=== PATIENT | male | born 1950 | race Caucasian/White ===

== ENCOUNTER 2017-12-21 10:01 | Inpatient (IN) | payer MEDICARE, OTHER ==
[2017-12-21] MEDS ORDERED: hydrALAZINE HCL 20 MG/ML 1 ML VIAL IVP STA ×3 (10:31→13:32)
[2017-12-21] MEDS ORDERED: amLODIPine 5 MG TAB PO STA (10:31)
--- NOTE | 2017-12-21 10:38 | ED ---
General Adult HPI - General Chief complaint: Recheck/Abnormal Lab/Rx Stated complaint: hypertension Time Seen by Provider: 12/21/17 10:18 Source: patient, RN notes reviewed Mode of arrival: wheelchair Limitations: no limitations - History of Present Illness Initial comments: 67-year-old male presents with chief complaint of elevated blood pressure. Patient has been adjusting his blood pressure medications over the past several days. He states that over the past 3-4 days his blood pressure has been trending up. He is currently taking lisinopril 20 mg twice daily, metoprolol placed which is a new medication, and sotalol. He was started on hydralazine but only takes medication for 1 day. He has history of hypertension, he is status post pacemaker, and COPD. Patient complains of some dizziness, nausea, and mild headache. Denies any focal numbness or weakness. Denies chest pain. Denies abdominal pain. - Related Data Home Medications Medication Instructions Recorded Confirmed Allopurinol [Zyloprim] 300 mg PO DAILY 12/21/17 12/21/17 Apixaban [Eliquis] 5 mg PO BID 12/21/17 12/21/17 Doxazosin Mesylate 8 mg PO BID 12/21/17 12/21/17 Lisinopril [Zestril] 20 mg PO BID 12/21/17 12/21/17 Metoprolol Tartrate [Lopressor] 50 mg PO BID 12/21/17 12/21/17 Omeprazole 40 mg PO DAILY 12/21/17 12/21/17 Simvastatin [Zocor] 20 mg PO HS 12/21/17 12/21/17 Sotalol [Betapace] 80 mg PO BID 12/21/17 12/21/17 Allergies Allergy/AdvReac Type Severity Reaction Status Date / Time amoxicillin Allergy Unknown Verified 12/21/17 10:56 ampicillin Allergy Unknown Verified 12/21/17 10:56 codeine Allergy Unknown Verified 12/21/17 10:56 Iodinated Contrast- Oral and Allergy Unknown Verified 12/21/17 10:56 IV Dye iodine Allergy Unknown Verified 12/21/17 10:56 levofloxacin [From Levaquin] Allergy Unknown Verified 12/21/17 10:56 Penicillins Allergy Unknown Verified 12/21/17 10:56 Review of Systems ROS Statement: Those systems with pertinent positive or pertinent negative responses have been documented in the HPI. ROS Other: All systems not noted in ROS Statement are negative. Past Medical History Past Medical History: CVA/TIA, Deep Vein Thrombosis (DVT), Hypertension, Myocardial Infarction ([place]), Pulmonary Embolus ([place]) History of Any Multi-Drug Resistant Organisms: None Reported Past Surgical History: Cardiac Ablation, Pacemaker Past Psychological History: Depression Smoking Status: Never smoker Past Alcohol Use History: None Reported Past Drug Use History: Marijuana General Exam Limitations: no limitations General appearance: alert, in no apparent distress Head exam: Present: atraumatic, normocephalic Eye exam: Present: normal appearance. Absent: PERRL, EOMI ENT exam: Present: normal oropharynx Neck exam: Present: normal inspection. Absent: tenderness, meningismus Respiratory exam: Present: normal lung sounds bilaterally, decreased breath sounds. Absent: respiratory distress, rhonchi Cardiovascular Exam: Present: regular rate, normal rhythm GI/Abdominal exam: Present: soft. Absent: distended, tenderness Extremities exam: Present: normal inspection, full ROM. Absent: tenderness, normal capillary refill, pedal edema Neurological exam: Present: alert, oriented X3, CN II-XII intact. Absent: motor sensory deficit Psychiatric exam: Present: normal affect, normal mood Skin exam: Present: warm, dry, intact. Absent: cyanosis, diaphoretic Course Vital Signs 12/21/17 12/21/17 12/21/17 10:07 11:15 11:25 Temperature 97.5 F L Pulse Rate 74 69 70 Respiratory 18 19 18 Rate Blood Pressure 221/129 227/145 190/122 O2 Sat by Pulse 97 98 98 Oximetry EKG Findings - EKG Comments: EKG Findings:: EKG shows atrial paced rhythm, low voltage QRS, ventricular rate 71, CA interval 150, QRS duration 82, QTC 525, which is prolonged Medical Decision Making - Medical Decision Making 67-year-old male presenting with elevated blood pressure, complain of mild headache and dizziness. Patient has no chest pain. EKG shows no definitive signs of ischemia. Chest x-ray obtained, normal mediastinum, no focal infiltrate or acute process. Head CT is obtained, there is chronic changes with no acute intracranial hemorrhage or ischemia. Laboratory studies reveal normal white blood cell count 4.8, stable hemoglobin 15.4. Troponin is elevated 0.279 and BNP is 1260. Initial blood pressure 240/140. Patient is given hydralazine and Norvasc, blood pressure is down trending. Patient will be admitted for serial cardiac enzymes and further blood pressure management. Diagnosis: Hypertensive urgency - Lab Data Result diagrams: 12/21/17 10:35 12/21/17 10:35 Lab Results 12/21/17 12/21/17 12/21/17 Range/Units 10:35 10:35 10:35 WBC 4.8 (3.8-10.6) k/uL RBC 4.97 (4.30-5.90) m/uL Hgb 15.4 (13.0-17.5) gm/dL Hct 47.4 (39.0-53.0) % MCV 95.4 (80.0-100.0) fL MCH 30.9 (25.0-35.0) pg MCHC 32.4 (31.0-37.0) g/dL RDW 13.4 (11.5-15.5) % Plt Count 209 (150-450) k/uL Neutrophils % 60 % Lymphocytes % 26 % Monocytes % 6 % Eosinophils % 6 % Basophils % 1 % Neutrophils # 2.9 (1.3-7.7) k/uL Lymphocytes # 1.2 (1.0-4.8) k/uL Monocytes # 0.3 (0-1.0) k/uL Eosinophils # 0.3 (0-0.7) k/uL Basophils # 0.1 (0-0.2) k/uL PT (9.0-12.0) sec INR (<1.2) APTT (22.0-30.0) sec Sodium 143 (137-145) mmol/L Potassium 4.1 (3.5-5.1) mmol/L Chloride 103 (98-107) mmol/L Carbon Dioxide 34 H (22-30) mmol/L Anion Gap 6 mmol/L BUN 21 H (9-20) mg/dL Creatinine 0.82 (0.66-1.25) mg/dL Est GFR (MDRD) Af Amer >60 (>60 ml/min/1.73 sqM) Est GFR (MDRD) Non-Af >60 (>60 ml/min/1.73 sqM) Glucose 105 H (74-99) mg/dL Calcium 9.1 (8.4-10.2) mg/dL Magnesium 1.7 (1.6-2.3) mg/dL Total Bilirubin 0.7 (0.2-1.3) mg/dL AST 61 H (17-59) U/L ALT 33 (21-72) U/L Alkaline Phosphatase 82 (38-126) U/L Total Creatine Kinase 77 (55-170) U/L CK-MB (CK-2) 3.1 H* (0.0-2.4) ng/mL CK-MB (CK-2) Rel Index 4.0 Troponin I 0.279 H* (0.000-0.034) ng/mL NT-Pro-B Natriuret Pep pg/mL Total Protein 6.7 (6.3-8.2) g/dL Albumin 3.6 (3.5-5.0) g/dL 12/21/17 12/21/17 Range/Units 10:35 10:35 WBC (3.8-10.6) k/uL RBC (4.30-5.90) m/uL Hgb (13.0-17.5) gm/dL Hct (39.0-53.0) % MCV (80.0-100.0) fL MCH (25.0-35.0) pg MCHC (31.0-37.0) g/dL RDW (11.5-15.5) % Plt Count (150-450) k/uL Neutrophils % % Lymphocytes % % Monocytes % % Eosinophils % % Basophils % % Neutrophils # (1.3-7.7) k/uL Lymphocytes # (1.0-4.8) k/uL Monocytes # (0-1.0) k/uL Eosinophils # (0-0.7) k/uL Basophils # (0-0.2) k/uL PT 11.5 (9.0-12.0) sec INR 1.2 H (<1.2) APTT 26.6 (22.0-30.0) sec Sodium (137-145) mmol/L Potassium (3.5-5.1) mmol/L Chloride (98-107) mmol/L Carbon Dioxide (22-30) mmol/L Anion Gap mmol/L BUN (9-20) mg/dL Creatinine (0.66-1.25) mg/dL Est GFR (MDRD) Af Amer (>60 ml/min/1.73 sqM) Est GFR (MDRD) Non-Af (>60 ml/min/1.73 sqM) Glucose (74-99) mg/dL Calcium (8.4-10.2) mg/dL Magnesium (1.6-2.3) mg/dL Total Bilirubin (0.2-1.3) mg/dL AST (17-59) U/L ALT (21-72) U/L Alkaline Phosphatase (38-126) U/L Total Creatine Kinase (55-170) U/L CK-MB (CK-2) (0.0-2.4) ng/mL CK-MB (CK-2) Rel Index Troponin I (0.000-0.034) ng/mL NT-Pro-B Natriuret Pep 1260 pg/mL Total Protein (6.3-8.2) g/dL Albumin (3.5-5.0) g/dL Critical Care Time Critical Care Time: Yes Total Critical Care Time: 35 Disposition Clinical Impression: Hypertensive urgency, Elevated troponin Dis[facility] Condition: Serious Referrals: Yosi Joseph MD [Primary Care Provider] - 1-2 days Decision to Admit Reason: Admit from EC Decision Date: 12/21/17 Decision Time: 11:46
[2017-12-21 10:49] LABS: Basophils # (A) 0.1 k/uL (0-0.2); Basophils % (A) 1 %; Eosinophils # (A) 0.3 k/uL (0-0.7); Eosinophils % (A) 6 %; HCT 47.4 % (39.0-53.0); HGB 15.4 gm/dL (13.0-17.5); Lymphocytes # (A) 1.2 k/uL (1.0-4.8); Lymphocytes % (A) 26 %; MCH 30.9 pg (25.0-35.0); MCHC 32.4 g/dL (31.0-37.0); MCV 95.4 fL (80.0-100.0); Mean Platelet Volume 7.3; Monocytes # (A) 0.3 k/uL (0-1.0); Monocytes % (A) 6 %; Neutrophils # (A) 2.9 k/uL (1.3-7.7); Neutrophils % (A) 60 %; Platelet Count 209 k/uL (150-450); RBC 4.97 m/uL (4.30-5.90); RDW 13.4 % (11.5-15.5); WBC 4.8 k/uL (3.8-10.6)
[2017-12-21 11:05] LABS: ALT 33 U/L (21-72); AST 61 U/L (17-59); Albumin 3.6 g/dL (3.5-5.0); Alkaline Phosphatase 82 U/L (38-126); Anion Gap 6 mmol/L; Blood Urea Nitrogen 21 mg/dL (9-20); Calcium 9.1 mg/dL (8.4-10.2); Carbon Dioxide 34 mmol/L (22-30); Chloride 103 mmol/L (98-107); Glucose 105 mg/dL (74-99); INR 1.2 (<1.2); Magnesium 1.7 mg/dL (1.6-2.3); Partial Thromboplastin Time 26.6 sec (22.0-30.0); Potassium 4.1 mmol/L (3.5-5.1); Prothrombin Time 11.5 sec (9.0-12.0); Sodium 143 mmol/L (137-145); Total Bilirubin 0.7 mg/dL (0.2-1.3); Total Protein 6.7 g/dL (6.3-8.2)
--- NOTE | 2017-12-21 11:13 | CT ---
EXAMINATION TYPE: CT brain wo con DATE OF EXAM: 12/21/2017 COMPARISON: NONE INDICATION: Elevated blood pressure, weakness and headache DLP: 1098.8 mGycm, Automated exposure control for dose reduction was used. CONTRAST: None CT of the brain is performed utilizing 3 mm thick sections through the posterior fossa and 3 mm thick sections through the remaining calvarium. Study is performed within 24 hours of arrival to the hosp ital. No abnormal hyperdensity is present to suggest an acute intracranial hemorrhage. No mass lesion is evident. No acute infarcts are evident. There is some mild white matter hypodensity in the posterior periventr icular regions most likely on the basis of chronic white matter ischemic change. Ventricles and sulci are appropriate for the patient age. Ventricles thickening through ethmoid air cells within the left frontal sinus. Air-fluid level may be within the left frontal sinus. Remaining paranasal sinuses are clear. Mastoid air cells are clear. IMPRESSIONS: 1. Mild periventricular white matter ischemic type changes. 2. Clinical correlation recommended for acute left frontal sinusitis
--- NOTE | 2017-12-21 11:27 | XR ---
EXAMINATION TYPE: XR chest 2V DATE OF EXAM: 12/21/2017 COMPARISON: NONE INDICATION: Chest pain TECHNIQUE: Frontal and lateral views of the chest are obtained. FINDINGS: The heart size is normal. The pulmonary vasculature is normal. The lungs are clear. Pacemaker overlies left chest. Lead placement appears normal. IMPRESSION: 1. No acute pulmonary process.
[2017-12-21 11:30] LABS: Creatine Kinase MB 3.1 ng/mL (0.0-2.4); Troponin I 0.279 ng/mL (0.000-0.034)
[2017-12-21] MEDS ORDERED: ASPIRIN 325 MG TAB PO STA (11:35)
[2017-12-21] MEDS ORDERED: ACETAMINOPHEN TAB 325 MG TAB PO PRN (11:46)
[2017-12-21] MEDS ORDERED: NALOXONE 0.4 MG/ML 1 ML VIAL IV PRN (11:46)
--- NOTE | 2017-12-21 13:58 | HP ---
HISTORY AND PHYSICAL CHIEF COMPLAINT: High blood pressure. HISTORY OF PRESENT ILLNESS: This is another admission for this 67-year-old white male. He is in the office last week and his blood pressure was exceedingly high and he was started on hydralazine in addition to the other medications he is on. Apparently, his blood pressure started to come down to around 160, but when he called his change management lead, Dr. Aquino recommended that he not take the hydralazine. He then began knows his blood pressure rising. He checks it at home. It was 174/119 and then 160/120, then went up to 180/126 and then up to over 200 in which was when he came to the emergency room. The only symptoms he had were headache, dizziness and nausea. He had no chest pain or shortness of breath. In the emergency room, his blood pressure was 221/129. His troponin was also elevated slightly, but he had absolutely no pain and his EKG was unremarkable. REVIEW OF SYSTEMS: He has an and no change in vision or hearing, cough, hemoptysis, abdominal pain, vomiting, diarrhea, melena, urinary complaints, renal failure, gout, diabetes, etc. At home he has been on a Zyloprim, amlodipine, apixaban, aspirin, Vicodin, lisinopril, Toprol, omeprazole, simvastatin, and also is on sotalol. He does not smoke. PHYSICAL EXAM: Blood pressure is 221/129, pulse 74 and regular, respirations of 18. He is afebrile. In general, he appeared to be well developed, well nourished, no acute distress. Skin color is normal. Skin is warm, dry. He is oriented and alert. Head, ears, eyes, nose, mouth, and throat were normal. Neck veins not distended. Carotids are normal. Chest is clear to auscultation, percussion. Cardiac exam demonstrated normal sinus rhythm. The abdomen is soft and nontender without any visceromegaly or masses. Bowel sounds are present. Extremities are normal. Neurologically, he is intact. IMPRESSION: 1. Malignant hypertension. 2. Elevated troponin. PLAN: 1. Bed rest. 2. IV fluids. 3. Uncontrolled hypertension. 4. Consult with Cardiology. MMODL / IJN: [id number] /
[2017-12-21] MEDS ORDERED: MORPHINE SULFATE 4 MG/ML SYRINGE IVP STA (16:08)
[2017-12-21] MEDS ORDERED: HYDROcodone/APAP 5-325MG 1 EACH TAB PO STA (16:09)
[2017-12-21] MEDS ORDERED: FAMOTIDINE 20 MG/2 ML VIAL IV STA (16:25)
[2017-12-21] MEDS ORDERED: METOPROLOL TARTRATE 5 MG/5 ML VIAL IVP STA (16:25)
[2017-12-21] MEDS ORDERED: DILTIAZEM 5 MG/ML 5 ML VIAL IVP STA (17:43)
[2017-12-21] MEDS: DILTIAZEM 125 MG in SODIUM CHLORIDE 0.9% 100 ML IV SCH (18:37)
[2017-12-21 18:50] LABS: Creatine Kinase MB 2.5 ng/mL (0.0-2.4)
[2017-12-21 19:43] LABS: Troponin I 0.21 ng/mL (0.000-0.034)
[2017-12-21] MEDS: hydrALAZINE HCL 50 MG TAB PO SCH ×2 (20:38→20:47)
[2017-12-21] MEDS: SODIUM CHLORIDE 0.9% 250 ML IV SCH ×4 (20:39→20:43)
[2017-12-21] MEDS: SOTALOL 80 MG TAB PO SCH (20:46)
[2017-12-21] MEDS: APIXABAN 5 MG TAB PO SCH (20:46)
[2017-12-21] MEDS: DOXAZOSIN 4 MG TAB PO SCH (20:47)
[2017-12-21] MEDS: ATORVASTATIN 10 MG TAB PO SCH (20:47)
[2017-12-21] MEDS: METOPROLOL TARTRATE 50 MG TAB PO SCH (20:47)
[2017-12-21] MEDS: LISINOPRIL 20 MG TAB PO SCH (20:47)
[2017-12-21 22:30] VITALS: BMI 28.0
[2017-12-22 01:14] LABS: Creatine Kinase MB 1.9 ng/mL (0.0-2.4)
[2017-12-22 01:19] LABS: Troponin I 0.205 ng/mL (0.000-0.034)
[2017-12-22] MEDS: HYDROcodone/APAP 5-325MG 1 EACH TAB PO PRN (05:21)
[2017-12-22] MEDS: DILTIAZEM 125 MG in SODIUM CHLORIDE 0.9% 100 ML IV SCH (05:49)
[2017-12-22] MEDS: PANTOPRAZOLE 40 MG TABLET PO SCH (06:07)
[2017-12-22] MEDS: SOTALOL 80 MG TAB PO SCH ×2 (06:07→17:08)
[2017-12-22] MEDS: METOPROLOL TARTRATE 50 MG TAB PO SCH (07:59)
[2017-12-22] MEDS: DOXAZOSIN 4 MG TAB PO SCH ×2 (07:59→21:29)
[2017-12-22] MEDS: ALLOPURINOL 300 MG TAB PO SCH (07:59)
[2017-12-22] MEDS: APIXABAN 5 MG TAB PO SCH ×2 (07:59→21:29)
[2017-12-22] MEDS: LISINOPRIL 20 MG TAB PO SCH ×2 (07:59→21:29)
[2017-12-22] MEDS: hydrALAZINE HCL 50 MG TAB PO SCH ×3 (07:59→21:29)
[2017-12-22] MEDS ORDERED: amLODIPine 5 MG TAB PO SCH (09:00)
--- NOTE | 2017-12-22 10:34 | P.CRDCN ---
History of Present Illness Reason for Consult (text): Patient admitted with severe headache and elevated blood pressure. Over the last 3-4 days he has noticed that his blood pressure been trending upwards He also has a history of recurrent palpitations and a history of atrial fibrillation No chest discomfort no loss of consciousness Past medical history of CVA DVT and pulmonary embolism Hypertension Coronary artery disease status post coronary stenting and myocardial infarction Dual-chamber pacemaker Atrial fibrillation In 2003 he underwent an ablation for arrhythmia at the [facility] by Dr. Rich Last year he underwent an ablation at [facility] by Dr. Gt Hollingsworth I will get the 2 reports regarding the ablation procedures for review At this time #1 hypertension controlled with Procardia XL 90 mg by mouth daily and nadolol 40 mg by mouth daily, discontinue metoprolol, reduce doxazosin to 4 mg twice a day, DC amlodipine #2 twelve-lead ECG shows an episode of 2-1 atrial tachycardia, continue anticoagulation, continue nadolol 40 mg by mouth daily for rate control Please see full dictation by Dr. longoria Past Medical History Past Medical History: Atrial Fibrillation, CVA/TIA, Deep Vein Thrombosis (DVT), Hypertension, Myocardial Infarction ([place]), Pulmonary Embolus ([place]) Last Myocardial Infarction Date:: 2013 History of Any Multi-Drug Resistant Organisms: None Reported Past Surgical History: Cardiac Ablation, Pacemaker Past Anesthesia/Blood Transfusion Reactions: No Reported Reaction Type of Cardiac Device: Permanent Pacemaker Device Placement Date:: 2015 Past Psychological History: Depression Smoking Status: Never smoker Past Alcohol Use History: None Reported Past Drug Use History: Marijuana Medications and Allergies Home Medications Medication Instructions Recorded Confirmed Type Allopurinol [Zyloprim] 300 mg PO DAILY 12/21/17 12/21/17 History Apixaban [Eliquis] 5 mg PO BID 12/21/17 12/21/17 History Doxazosin Mesylate 8 mg PO BID 12/21/17 12/21/17 History Lisinopril [Zestril] 20 mg PO BID 12/21/17 12/21/17 History Metoprolol Tartrate [Lopressor] 50 mg PO BID 12/21/17 12/21/17 History Omeprazole 40 mg PO DAILY 12/21/17 12/21/17 History Simvastatin [Zocor] 20 mg PO HS 12/21/17 12/21/17 History Sotalol [Betapace] 80 mg PO BID 12/21/17 12/21/17 History Allergies Allergy/AdvReac Type Severity Reaction Status Date / Time amoxicillin Allergy Unknown Verified 12/21/17 10:56 ampicillin Allergy Unknown Verified 12/21/17 10:56 codeine Allergy Unknown Verified 12/21/17 10:56 Iodinated Contrast- Oral and Allergy Unknown Verified 12/21/17 10:56 IV Dye iodine Allergy Unknown Verified 12/21/17 10:56 levofloxacin [From Levaquin] Allergy Unknown Verified 12/21/17 10:56 Penicillins Allergy Unknown Verified 12/21/17 10:56 Physical Exam Vitals: Vital Signs Temp Pulse Pulse Resp BP BP Pulse Ox 12/22/17 08:00 98.3 F 72 16 151/67 96 12/22/17 06:07 76 151/100 12/22/17 04:00 98.2 F 70 13 128/90 96 12/22/17 00:23 70 97/65 12/21/17 23:32 72 13 99/68 98 12/21/17 22:11 92 118/73 12/21/17 20:36 97.6 F 98 16 152/89 97 12/21/17 18:44 98.1 F 120 H 16 165/108 93 L 12/21/17 16:39 120 H 14 173/88 99 12/21/17 15:00 74 16 172/110 97 12/21/17 14:15 81 18 167/106 97 12/21/17 13:50 74 19 173/102 97 12/21/17 12:35 97.1 F L 74 168/115 99 12/21/17 11:25 70 18 190/122 98 12/21/17 11:15 69 19 227/145 98 Intake and Output 12/21/17 12/22/17 12/22/17 22:59 06:59 14:59 Intake Total 200 51.333 30 Output Total 100 300 Balance 100 -248.667 30 Intake: Intake, IV Titration 51.333 Amount Diltiazem 125 mg In 51.333 Sodium Chloride 0.9% 100 ml @ 10 MG/HR 10 mls/hr IV .[id number] [facility] Rx#: [id number] Oral 200 30 Output: Urine 100 300 Other: # Voids 1 Weight 88.1 kg Results 12/21/17 10:35 12/21/17 10:35 Cardiac Enzymes 12/21/17 12/21/17 12/21/17 Range/Units 10:35 10:35 17:37 AST 61 H (17-59) U/L CK-MB (CK-2) 3.1 H* 2.5 H* (0.0-2.4) ng/mL Troponin I 0.279 H* 0.210 H* (0.000-0.034) ng/mL 12/22/17 Range/Units 00:10 AST (17-59) U/L CK-MB (CK-2) 1.9 (0.0-2.4) ng/mL Troponin I 0.205 H* (0.000-0.034) ng/mL Coagulation 12/21/17 Range/Units 10:35 PT 11.5 (9.0-12.0) sec APTT 26.6 (22.0-30.0) sec CBC 12/21/17 Range/Units 10:35 WBC 4.8 (3.8-10.6) k/uL RBC 4.97 (4.30-5.90) m/uL Hgb 15.4 (13.0-17.5) gm/dL Hct 47.4 (39.0-53.0) % Plt Count 209 (150-450) k/uL Comprehensive Metabolic Panel 12/21/17 Range/Units 10:35 Sodium 143 (137-145) mmol/L Potassium 4.1 (3.5-5.1) mmol/L Chloride 103 (98-107) mmol/L Carbon Dioxide 34 H (22-30) mmol/L BUN 21 H (9-20) mg/dL Creatinine 0.82 (0.66-1.25) mg/dL Glucose 105 H (74-99) mg/dL Calcium 9.1 (8.4-10.2) mg/dL AST 61 H (17-59) U/L ALT 33 (21-72) U/L Alkaline Phosphatase 82 (38-126) U/L Total Protein 6.7 (6.3-8.2) g/dL Albumin 3.6 (3.5-5.0) g/dL Current Medications Generic Name Dose Route Start Last Admin Trade Name Freq PRN Reason Stop Dose Admin Acetaminophen 650 mg 12/21/17 11:46 Tylenol Tab PO Q6HR PRN Mild Pain or Fever > 100.5 Hydrocodone Bitart/Acetaminophen 1 each 12/21/17 11:46 12/22/17 05:21 [place] 5-325 PO 1 each Q4HR PRN Administration Moderate Pain Allopurinol 300 mg 12/22/17 09:00 12/22/17 07:59 Zyloprim PO 300 mg DAILY [facility] Administration Apixaban 5 mg 12/21/17 21:00 12/22/17 07:59 Eliquis PO 5 mg BID [facility] Administration Atorvastatin Calcium 10 mg 12/21/17 21:00 12/21/17 20:47 Lipitor PO 10 mg HS [facility] Administration Doxazosin Mesylate 4 mg 12/22/17 21:00 Cardura PO BID [facility] Hydralazine HCl 100 mg 12/21/17 16:00 12/22/17 07:59 Apresoline PO 100 mg TID [facility] Administration Lisinopril 20 mg 12/21/17 21:00 12/22/17 07:59 Zestril PO 20 mg BID [facility] Administration Nadolol 40 mg 12/22/17 10:45 Corgard PO BID [facility] Naloxone HCl 0.2 mg 12/21/17 11:46 Narcan IV Q2M PRN Opioid Reversal Nifedipine 90 mg 12/22/17 10:45 Procardia Xl PO DAILY [facility] Pantoprazole Sodium 40 mg 12/22/17 07:30 12/22/17 06:07 Protonix PO 40 mg [id number] [facility] Administration Sotalol HCl 80 mg 12/21/17 18:00 12/22/17 06:07 Betapace PO 80 mg Q12H [facility] Administration Intake and Output 12/21/17 12/22/17 12/22/17 22:59 06:59 14:59 Intake Total 200 51.333 30 Output Total 100 300 Balance 100 -248.667 30 Intake: Intake, IV Titration 51.333 Amount Diltiazem 125 mg In 51.333 Sodium Chloride 0.9% 100 ml @ 10 MG/HR 10 mls/hr IV .[id number] [facility] Rx#: [id number] Oral 200 30 Output: Urine 100 300 Other: # Voids 1 Weight 88.1 kg 12/21/17 10:35 12/21/17 10:35
--- NOTE | 2017-12-22 10:56 | P.CRDCN ---
History of Present Illness Consult date: 12/22/17 Requesting physician: Yosi Joseph Consult reason: hypertension Chief complaint: Hypertension History of present illness: This is a pleasant 67-year-old gentleman who now follows with Dr. VC Aquino in the office. He recently moved to this area from [place], he has extensive history including ablation 3 for atrial fibrillation and atrial flutter, prior cardioversions, multiple CVAs and TIAs, myocardial infarction following a ruptured diverticula, prior DVT and PE, hypertension, sick sinus syndrome status post pacemaker, hyperlipidemia, marijuana use. According to the patient, he has been having recent medication adjustments for his blood pressure. He has a monitor at home which sits at his bedside, he was instructed that if the monitor ever goes off he is to come to the emergency room. He states that his device started beeping and for this reason he came in for further evaluation. According to the patient he has been experiencing some lightheadedness at home and generally not feeling well. He also complains of a mild headache and nausea. EKG performed on arrival here showed an atrial tachycardia, subsequent EKG showed a normal sinus rhythm with no acute changes. Patient was also noted on the monitor technician to have a rapid atrial tachycardia, he was initiated on IV Cardizem drip. Blood pressure on arrival here 221/129, blood pressure this morning 150/67. Patient has most recently been to see Dr. VC Aquino in November, medication adjustments were made, patient was started on Eliquis 5 mg twice a day and his Coumadin was discontinued, he was started on lisinopril 20 mg twice a day, continued on a baby aspirin daily, started on metoprolol tartrate 50 mg daily, simvastatin 20 mg daily, and sotalol one twice a day. His verapamil was discontinued. Patient was initiated here on Norvasc 5 mg daily. We will discontinue the Norvasc and start the patient on Procardia, we will also decrease the dose of Doxil Zosyn the patient is on 24 mg twice a day, discontinue Lopressor and start the patient on nadolol for more optimal blood pressure control. Discontinue IV Cardizem drip. Past Medical History Past Medical History: Atrial Fibrillation, CVA/TIA, Deep Vein Thrombosis (DVT), Hypertension, Myocardial Infarction (AR), Pulmonary Embolus (PE) Last Myocardial Infarction Date:: 2013 History of Any Multi-Drug Resistant Organisms: None Reported Past Surgical History: Cardiac Ablation, Pacemaker Past Anesthesia/Blood Transfusion Reactions: No Reported Reaction Type of Cardiac Device: Permanent Pacemaker Device Placement Date:: 2015 Past Psychological History: Depression Smoking Status: Never smoker Past Alcohol Use History: None Reported Past Drug Use History: Marijuana Medications and Allergies Home Medications Medication Instructions Recorded Confirmed Type Allopurinol [Zyloprim] 300 mg PO DAILY 12/21/17 12/21/17 History Apixaban [Eliquis] 5 mg PO BID 12/21/17 12/21/17 History Doxazosin Mesylate 8 mg PO BID 12/21/17 12/21/17 History Lisinopril [Zestril] 20 mg PO BID 12/21/17 12/21/17 History Metoprolol Tartrate [Lopressor] 50 mg PO BID 12/21/17 12/21/17 History Omeprazole 40 mg PO DAILY 12/21/17 12/21/17 History Simvastatin [Zocor] 20 mg PO HS 12/21/17 12/21/17 History Sotalol [Betapace] 80 mg PO BID 12/21/17 12/21/17 History Allergies Allergy/AdvReac Type Severity Reaction Status Date / Time amoxicillin Allergy Unknown Verified 12/21/17 10:56 ampicillin Allergy Unknown Verified 12/21/17 10:56 codeine Allergy Unknown Verified 12/21/17 10:56 Iodinated Contrast- Oral and Allergy Unknown Verified 12/21/17 10:56 IV Dye iodine Allergy Unknown Verified 12/21/17 10:56 levofloxacin [From Levaquin] Allergy Unknown Verified 12/21/17 10:56 Penicillins Allergy Unknown Verified 12/21/17 10:56 Physical Exam Vitals: Vital Signs Temp Pulse Pulse Resp BP BP Pulse Ox 12/22/17 08:00 98.3 F 72 16 151/67 96 12/22/17 06:07 76 151/100 12/22/17 04:00 98.2 F 70 13 128/90 96 12/22/17 00:23 70 97/65 12/21/17 23:32 72 13 99/68 98 12/21/17 22:11 92 118/73 12/21/17 20:36 97.6 F 98 16 152/89 97 12/21/17 18:44 98.1 F 120 H 16 165/108 93 L 12/21/17 16:39 120 H 14 173/88 99 12/21/17 15:00 74 16 172/110 97 12/21/17 14:15 81 18 167/106 97 12/21/17 13:50 74 19 173/102 97 12/21/17 12:35 97.1 F L 74 168/115 99 12/21/17 11:25 70 18 190/122 98 12/21/17 11:15 69 19 227/145 98 Intake and Output 12/21/17 12/22/17 12/22/17 22:59 06:59 14:59 Intake Total 200 51.333 30 Output Total 100 300 Balance 100 -248.667 30 Intake: Intake, IV Titration 51.333 Amount Diltiazem 125 mg In 51.333 Sodium Chloride 0.9% 100 ml @ 10 MG/HR 10 mls/hr IV .[id number] [facility] Rx#: [id number] Oral 200 30 Output: Urine 100 300 Other: # Voids 1 Weight 88.1 kg PHYSICAL EXAMINATION: HEENT: Head is atraumatic, normocephalic. Pupils equal, round. Neck is supple. There is no elevated jugular venous pressure. HEART EXAMINATION: Heart S1, S2 normal. No murmur or gallop heard. CHEST EXAMINATION: Lungs are clear to auscultation and precussion. No chest wall tenderness is noted on palpation or with deep breathing. ABDOMEN: Soft, nontender. Bowel sounds are heard. No organomegaly noted. EXTREMITIES: 2+ peripheral pulses with no evidence of peripheral edema and no calf tenderness noted. NEUROLOGIC patient is awake, alert and oriented -3. . Results 12/21/17 10:35 12/21/17 10:35 Cardiac Enzymes 12/21/17 12/21/17 12/21/17 Range/Units 10:35 10:35 17:37 AST 61 H (17-59) U/L CK-MB (CK-2) 3.1 H* 2.5 H* (0.0-2.4) ng/mL Troponin I 0.279 H* 0.210 H* (0.000-0.034) ng/mL 12/22/17 Range/Units 00:10 AST (17-59) U/L CK-MB (CK-2) 1.9 (0.0-2.4) ng/mL Troponin I 0.205 H* (0.000-0.034) ng/mL Coagulation 12/21/17 Range/Units 10:35 PT 11.5 (9.0-12.0) sec APTT 26.6 (22.0-30.0) sec CBC 12/21/17 Range/Units 10:35 WBC 4.8 (3.8-10.6) k/uL RBC 4.97 (4.30-5.90) m/uL Hgb 15.4 (13.0-17.5) gm/dL Hct 47.4 (39.0-53.0) % Plt Count 209 (150-450) k/uL Comprehensive Metabolic Panel 12/21/17 Range/Units 10:35 Sodium 143 (137-145) mmol/L Potassium 4.1 (3.5-5.1) mmol/L Chloride 103 (98-107) mmol/L Carbon Dioxide 34 H (22-30) mmol/L BUN 21 H (9-20) mg/dL Creatinine 0.82 (0.66-1.25) mg/dL Glucose 105 H (74-99) mg/dL Calcium 9.1 (8.4-10.2) mg/dL AST 61 H (17-59) U/L ALT 33 (21-72) U/L Alkaline Phosphatase 82 (38-126) U/L Total Protein 6.7 (6.3-8.2) g/dL Albumin 3.6 (3.5-5.0) g/dL Current Medications Generic Name Dose Route Start Last Admin Trade Name Freq PRN Reason Stop Dose Admin Acetaminophen 650 mg 12/21/17 11:46 Tylenol Tab PO Q6HR PRN Mild Pain or Fever > 100.5 Hydrocodone Bitart/Acetaminophen 1 each 12/21/17 11:46 12/22/17 05:21 Dawson 5-325 PO 1 each Q4HR PRN Administration Moderate Pain Allopurinol 300 mg 12/22/17 09:00 12/22/17 07:59 Zyloprim PO 300 mg DAILY [facility] Administration Amlodipine Besylate 5 mg 12/22/17 09:00 12/22/17 07:59 Norvasc PO 5 mg DAILY [facility] Administration Apixaban 5 mg 12/21/17 21:00 12/22/17 07:59 Eliquis PO 5 mg BID [facility] Administration Atorvastatin Calcium 10 mg 12/21/17 21:00 12/21/17 20:47 Lipitor PO 10 mg HS [facility] Administration Doxazosin Mesylate 8 mg 12/21/17 21:00 12/22/17 07:59 Cardura PO 8 mg BID [facility] Administration Hydralazine HCl 100 mg 12/21/17 16:00 12/22/17 07:59 Apresoline PO 100 mg TID [facility] Administration Diltiazem HCl 125 mg/ Sodium 125 mls @ 10 mls/hr 12/21/17 18:00 12/22/17 05: 49 Chloride IV Not Given .[id number] [facility] 10 MG/HR Lisinopril 20 mg 12/21/17 21:00 12/22/17 07:59 Zestril PO 20 mg BID [facility] Administration Metoprolol Tartrate 50 mg 12/21/17 21:00 12/22/17 07:59 Lopressor PO 50 mg BID [facility] Administration Naloxone HCl 0.2 mg 12/21/17 11:46 Narcan IV Q2M PRN Opioid Reversal Pantoprazole Sodium 40 mg 12/22/17 07:30 12/22/17 06:07 Protonix PO 40 mg [id number] [facility] Administration Sotalol HCl 80 mg 12/21/17 18:00 12/22/17 06:07 Betapace PO 80 mg Q12H [facility] Administration Intake and Output 12/21/17 12/22/17 12/22/17 22:59 06:59 14:59 Intake Total 200 51.333 30 Output Total 100 300 Balance 100 -248.667 30 Intake: Intake, IV Titration 51.333 Amount Diltiazem 125 mg In 51.333 Sodium Chloride 0.9% 100 ml @ 10 MG/HR 10 mls/hr IV .[id number] [facility] Rx#: [id number] Oral 200 30 Output: Urine 100 300 Other: # Voids 1 Weight 88.1 kg 12/21/17 10:35 12/21/17 10:35 EKG Interpretations (text) Original EKG shows an atrial tachycardia with rapid ventricular response. Subsequent EKG shows a normal sinus rhythm Assessment and Plan Plan: Assessment and plan #1 accelerated hypertension #2 atrial tachycardia with rapid ventricular response #3 history of prior ablations for atrial fibrillation and atrial flutter #4 history of cardioversions #5 prior CVA and TIAs #6 history of myocardial infarction #7History of DVT and pulmonary embolism #8 hypertension #9 sinus syndrome with prior pacemaker #10 hyperlipidemia #11 arthritis Plan We will obtain records of patient's prior ablations and procedures. We will also obtain an echocardiogram with Doppler study. We will discontinue the Cardizem drip and the Norvasc and start the patient on Procardia, discontinue metoprolol and initiate nadolol for more optimal blood pressure control. Patient did have a pacemaker interrogation performed on December 03 in the office which revealed 345 mode switches with only 2 stored EGM's both showing FFR W sensing. Also showed 17 high ventricular rate episodes with 2 stored EGM' s showing nonsustained VT, longest 9 seconds. EKG shows atrial paced rhythm with poor R-wave progression and QTC of 471. We will continue to monitor the patient's blood pressure and heart rate further recommendations to follow. DNP note has been reviewed, I agree with a documented findings and plan of care. Patient was seen and examined.
[2017-12-22] MEDS: NADOLOL 20 MG TAB PO SCH ×2 (12:39→21:28)
[2017-12-22] MEDS: NIFEdipine XL 90 MG TAB.ER.24 PO SCH (12:39)
--- NOTE | 2017-12-22 14:14 | PN ---
PROGRESS NOTE DATE OF SERVICE: 12/22/2017 CHIEF COMPLAINT: Hypertension. HISTORY OF PRESENT ILLNESS: This gentleman still has a headache but he is feeling a little bit better. Blood pressure has dropped into an improved range, but still elevated. He has had no chest pain. PHYSICAL EXAM: HEENT is normal and the chest is clear. The cardiac exam is normal and the abdomen is soft, nontender. IMPRESSION: 1. Hypertensive crisis. 2. History of atrial fibrillation. 3. History of coronary artery disease. PLAN: Increase activity and continue efforts to control hypertension. Troponins were elevated and he is being seen by Cardiology. MMODL / IJN: [id number] /
[2017-12-22] MEDS: ATORVASTATIN 10 MG TAB PO SCH (21:30)
[2017-12-23] MEDS: HYDROcodone/APAP 5-325MG 1 EACH TAB PO PRN ×2 (00:30→21:43)
[2017-12-23] MEDS: PANTOPRAZOLE 40 MG TABLET PO SCH (06:24)
[2017-12-23] MEDS: SOTALOL 80 MG TAB PO SCH ×2 (06:24→17:27)
[2017-12-23] MEDS: hydrALAZINE HCL 50 MG TAB PO SCH ×3 (09:37→21:27)
[2017-12-23] MEDS: NIFEdipine XL 90 MG TAB.ER.24 PO SCH (09:38)
[2017-12-23] MEDS: APIXABAN 5 MG TAB PO SCH ×2 (09:38→21:27)
[2017-12-23] MEDS: ALLOPURINOL 300 MG TAB PO SCH (09:38)
[2017-12-23] MEDS: NADOLOL 20 MG TAB PO SCH ×2 (09:38→21:27)
[2017-12-23] MEDS: LISINOPRIL 20 MG TAB PO SCH ×2 (09:38→21:27)
--- NOTE | 2017-12-23 11:35 | P.PN ---
Progress Note - Text Please see full dictation by Dr. longoria EP study and ablation report from [facility] reviewed. Patient underwent EP study and detailed mapping of the atria. Pulmonary veins were completely isolated from his prior ablation. A roof line was made. Mitral isthmus line was made which resulted in lengthening of the tachycardia cycle length but he did not terminate. Voltage map revealed extensive scarring in the left atrium. Patient was cardioverted treated with sotalol with the advice for medical treatment rather than any further ablations. This was a difficult mitral isthmus ablation I would concur with this opinion. I would recommend treatment with Procardia XL along with nadolol 40 mg 2 daily. Amlodipine to be stopped Continue lifelong anticoagulation Rate control 90 granulation patient has an underlying pacemaker. Pacemaker interrogation report especially atrial lead function needs to be determined His x-ray shows RV lead in stable position but a very large heel on the atrial lead
--- NOTE | 2017-12-23 14:24 | P.PN ---
Subjective Progress Note Date: 12/23/17 This is a pleasant 67-year-old gentleman who now follows with Dr. VC Aquino in the office. He recently moved to this area from [place], he has extensive history including ablation 3 for atrial fibrillation and atrial flutter, prior cardioversions, multiple CVAs and TIAs, myocardial infarction following a ruptured diverticula, prior DVT and PE, hypertension, sick sinus syndrome status post pacemaker, hyperlipidemia, marijuana use. According to the patient, he has been having recent medication adjustments for his blood pressure. He has a monitor at home which sits at his bedside, he was instructed that if the monitor ever goes off he is to come to the emergency room. He states that his device started beeping and for this reason he came in for further evaluation. According to the patient he has been experiencing some lightheadedness at home and generally not feeling well. He also complains of a mild headache and nausea. EKG performed on arrival here showed an atrial tachycardia, subsequent EKG showed a normal sinus rhythm with no acute changes. Patient was also noted on the renal social worker to have a rapid atrial tachycardia, he was initiated on IV Cardizem drip. Blood pressure on arrival here 221/129, blood pressure this morning 150/67. Patient has most recently been to see Dr. VC Aquino in November, medication adjustments were made, patient was started on Eliquis 5 mg twice a day and his Coumadin was discontinued, he was started on lisinopril 20 mg twice a day, continued on a baby aspirin daily, started on metoprolol tartrate 50 mg daily, simvastatin 20 mg daily, and sotalol one twice a day. His verapamil was discontinued. Patient was initiated here on Norvasc 5 mg daily. We will discontinue the Norvasc and start the patient on Procardia, we will also decrease the dose of Doxil Zosyn the patient is on 24 mg twice a day, discontinue Lopressor and start the patient on nadolol for more optimal blood pressure control. Discontinue IV Cardizem drip. 12/23/2017 Patient was seen and examined this morning, feeling well, no further episodes of tachycardia arrhythmias noted on the monitor. Blood pressure today is under excellent control 110/75, on nadolol and Procardia. Information on prior EP study and ablations reviewed by Dr. Burk, he concurs with their opinion not to perform any further ablation procedures, we will continue treatment with Procardia, Nadolol. Continue lifelong anticoagulation. Rate control. Objective - Vital Signs Vital signs: Vital Signs Temp 97.9 F 12/23/17 08:00 Pulse 72 12/23/17 12:00 Resp 17 12/23/17 12:00 BP 111/76 12/23/17 12:00 Pulse Ox 96 12/23/17 12:00 Intake & Output 12/22/17 12/23/17 12/23/17 18:59 06:59 18:59 Intake Total 40 980 200 Output Total 200 300 860 Balance -160 680 -660 Weight 88.7 kg Intake: IV 10 20 0.9 20 Invasive Line 1 10 Intake, IV Titration 0 Amount Sodium Chloride 0.9% 250 0 ml @ 999 mls/hr IV .Q16M [facility] Rx#:[id number] Oral 30 960 200 Output: Urine 200 300 860 Other: # Voids 2 2 - Exam PHYSICAL EXAMINATION: HEENT: Head is atraumatic, normocephalic. Pupils equal, round. Neck is supple. There is no elevated jugular venous pressure. HEART EXAMINATION: Heart S1, S2 normal. No murmur or gallop heard. CHEST EXAMINATION: Lungs are clear to auscultation and precussion. No chest wall tenderness is noted on palpation or with deep breathing. ABDOMEN: Soft, nontender. Bowel sounds are heard. No organomegaly noted. EXTREMITIES: 2+ peripheral pulses with no evidence of peripheral edema and no calf tenderness noted. NEUROLOGIC patient is awake, alert and oriented -3. . - Labs CBC & Chem 7: 12/21/17 10:35 12/21/17 10:35 Assessment and Plan Plan: Assessment and plan #1 accelerated hypertension #2 atrial tachycardia with rapid ventricular response #3 history of prior ablations for atrial fibrillation and atrial flutter #4 history of cardioversions #5 prior CVA and TIAs #6 history of myocardial infarction #7History of DVT and pulmonary embolism #8 hypertension #9 sinus syndrome with prior pacemaker #10 hyperlipidemia #11 arthritis Plan We will decrease the patient's Cardura to 4 mg daily. Continue Procardia and nadolol. DNP note has been reviewed, I agree with a documented findings and plan of care. Patient was seen and examined.
[2017-12-23] MEDS: DOXAZOSIN 4 MG TAB PO SCH (18:35)
--- NOTE | 2017-12-23 20:48 | PN ---
PROGRESS NOTE CHIEF COMPLAINT: Hypertensive crisis, history of CAD and atrial fibrillation. HISTORY OF PRESENT ILLNESS: This gentleman is doing fairly well. Blood pressure is improving. He has had no further headache, chest pain, etc. PHYSICAL EXAMINATION: CHEST: Clear. The cardiac exam is normal except for occasional extra beats. The abdomen is soft, nontender. Extremities are normal. IMPRESSION: 1. Hypertensive crisis. 2. Arrhythmia. 3. History of coronary artery disease. 4. Elevated troponin. PLAN: 1. Try to progress activity. 2. Await guidelines from Cardiology, specifically related to his elevated troponin. MMODL / IJN: [id number] /
[2017-12-23] MEDS ORDERED: DOXAZOSIN 4 MG TAB PO SCH (21:00)
[2017-12-23] MEDS: ATORVASTATIN 10 MG TAB PO SCH (21:27)
[2017-12-24 00:58] VITALS: RESP 16
[2017-12-24] MEDS: PANTOPRAZOLE 40 MG TABLET PO SCH (06:22)
[2017-12-24] MEDS: SOTALOL 80 MG TAB PO SCH (06:22)
[2017-12-24] MEDS: hydrALAZINE HCL 50 MG TAB PO SCH (07:53)
[2017-12-24] MEDS: APIXABAN 5 MG TAB PO SCH (07:53)
[2017-12-24] MEDS: ALLOPURINOL 300 MG TAB PO SCH (07:53)
[2017-12-24] MEDS: NADOLOL 20 MG TAB PO SCH (07:53)
[2017-12-24] MEDS: NIFEdipine XL 90 MG TAB.ER.24 PO SCH (07:53)
[2017-12-24 07:57] VITALS: TEMP 96.8
--- NOTE | 2017-12-24 11:22 | P.PN ---
Subjective Progress Note Date: 12/24/17 This is a pleasant 67-year-old gentleman who now follows with Dr. VC Aquino in the office. He recently moved to this area from [place], he has extensive history including ablation 3 for atrial fibrillation and atrial flutter, prior cardioversions, multiple CVAs and TIAs, myocardial infarction following a ruptured diverticula, prior DVT and PE, hypertension, sick sinus syndrome status post pacemaker, hyperlipidemia, marijuana use. According to the patient, he has been having recent medication adjustments for his blood pressure. He has a monitor at home which sits at his bedside, he was instructed that if the monitor ever goes off he is to come to the emergency room. He states that his device started beeping and for this reason he came in for further evaluation. According to the patient he has been experiencing some lightheadedness at home and generally not feeling well. He also complains of a mild headache and nausea. EKG performed on arrival here showed an atrial tachycardia, subsequent EKG showed a normal sinus rhythm with no acute changes. Patient was also noted on the natural gas field processing supervisor to have a rapid atrial tachycardia, he was initiated on IV Cardizem drip. Blood pressure on arrival here 221/129, blood pressure this morning 150/67. Patient has most recently been to see Dr. VC Aquino in November, medication adjustments were made, patient was started on Eliquis 5 mg twice a day and his Coumadin was discontinued, he was started on lisinopril 20 mg twice a day, continued on a baby aspirin daily, started on metoprolol tartrate 50 mg daily, simvastatin 20 mg daily, and sotalol one twice a day. His verapamil was discontinued. Patient was initiated here on Norvasc 5 mg daily. We will discontinue the Norvasc and start the patient on Procardia, we will also decrease the dose of Doxil Zosyn the patient is on 24 mg twice a day, discontinue Lopressor and start the patient on nadolol for more optimal blood pressure control. Discontinue IV Cardizem drip. 12/23/2017 Patient was seen and examined this morning, feeling well, no further episodes of tachycardia arrhythmias noted on the monitor. Blood pressure today is under excellent control 110/75, on nadolol and Procardia. Information on prior EP study and ablations reviewed by Dr. Burk, he concurs with their opinion not to perform any further ablation procedures, we will continue treatment with Procardia, Nadolol. Continue lifelong anticoagulation. Rate control. 12/24/2017 Patient seen and examined this morning, feels well, blood pressure continues to be under excellent control. He may be able to be discharged from our perspective today. Objective - Vital Signs Vital signs: Vital Signs Temp 96.8 F L 12/24/17 07:56 Pulse 73 12/24/17 07:56 Resp 16 12/24/17 08:00 BP 121/82 12/24/17 07:56 Pulse Ox 95 12/24/17 07:56 Intake & Output 12/23/17 12/24/17 12/24/17 18:59 06:59 18:59 Intake Total 380 500 240 Output Total 860 750 Balance -480 500 -510 Weight 88.7 kg Intake: IV 20 0.9 20 Oral 380 480 240 Output: Urine 860 750 Other: # Voids 250 - Exam PHYSICAL EXAMINATION: HEENT: Head is atraumatic, normocephalic. Pupils equal, round. Neck is supple. There is no elevated jugular venous pressure. HEART EXAMINATION: Heart S1, S2 normal. No murmur or gallop heard. CHEST EXAMINATION: Lungs are clear to auscultation and precussion. No chest wall tenderness is noted on palpation or with deep breathing. ABDOMEN: Soft, nontender. Bowel sounds are heard. No organomegaly noted. EXTREMITIES: 2+ peripheral pulses with no evidence of peripheral edema and no calf tenderness noted. NEUROLOGIC patient is awake, alert and oriented -3. . - Labs CBC & Chem 7: 12/21/17 10:35 12/21/17 10:35 Assessment and Plan Plan: Assessment and plan #1 accelerated hypertension #2 atrial tachycardia with rapid ventricular response #3 history of prior ablations for atrial fibrillation and atrial flutter #4 history of cardioversions #5 prior CVA and TIAs #6 history of myocardial infarction #7History of DVT and pulmonary embolism #8 hypertension #9 sinus syndrome with prior pacemaker #10 hyperlipidemia #11 arthritis Plan From cardiology's perspective we will continue current medications. Patient may be able to be discharged home today from cardiology's perspective. We will make a follow-up appointment to see Dr. VC Aquino in the office in 2-3 weeks post discharge. We will continue lisinopril 20 mg twice a day along with Corgard 40 mg twice a day, Procardia 90 mg daily, sotalol 80 mg twice a day, Eliquis 5 mg twice a day, Lipitor 10 mg daily. DNP note has been reviewed, I agree with a documented findings and plan of care. Patient was seen and examined.
[2017-12-24] MEDS: LISINOPRIL 20 MG TAB PO SCH (11:52)
[2017-12-24 11:54] VITALS: BP 115/79; PULSE 72
--- NOTE | 2017-12-24 17:28 | DS ---
DISCHARGE SUMMARY CHIEF COMPLAINT: Hypertensive emergency. HISTORY OF PRESENT ILLNESS AND PHYSICAL EXAM: Details of this man's history and physical can be found in the initial workup. COURSE IN HOSPITAL: After admission, he was placed on bedrest, bedrest, started on intravenous fluids and was seen by Cardiology. They felt that once blood pressure is under control, that there was nothing further that needs to be done from their perspective. The patient is doing well. Blood pressure was down normal. It was felt like he could go home on the seventh. He will go home on his usual medications in addition to Corgard and calcium channel myah, and he will stay on the Apresoline. He will be seen in the office in a day or 2 and be watched closely to make sure his blood pressure does not drop too low or go back up again. FINAL DIAGNOSES: 1. Hypertensive crisis. 2. Atrial fibrillation. 3. Coronary artery disease. OPERATIONS: None. CONSULTATIONS: Cardiology. He is improved. MMODL / IJN: [id number] /
--- NOTE | 2017-12-29 08:13 | CDI ---
Last Revision, September 2017 Documentation Clarification Form Date: 12/29/17 From: Stephie Florentino Liz Gonzalez, Senior Manufacturing Technician between 8:30 am & 5 pm Yuly Admit Date: 12/21/2017 11:46:00 AM Patient Name: Chetan Kumar Visit Number: [id number] Discharge Date: 12/24/17 ATTENTION: The Clinical Documentation Specialists (CDI) and [facility] Coding Staff appreciate your assistance in clarifying documentation. Please respond to the clarification below the line at the bottom and electronically sign. The CDI & [facility] Coding staff will review the response and follow-up if needed. Please note: Queries are made part of the Legal Health Record. If you have any questions, please contact the author of this message via ITS. Dr. Yosi Joseph Atrial fibrillation is documented in the discharge summary. Consults, PNs 12/22, & 37 document history of. History/Risk Factors: s/p ablation X3 Clinical Indicators: atrial tachycardia EKG/telemetry: electronic atrial pacemaker Treatment: Lisinopril 20 mg bid, Corgard 40 mg bid, Sotalol 80 mg bid, Eliquis 5 mg bid, Liptor 10 mg Consults: cardiology x 2 In your professional opinion, can you please clarify the type of atrial fibrillation, if known? Chronic/Permanent Paroxysmal Persistent Other, please specify Unable to determine Please continue to document in your progress notes and discharge summary in order to capture severity of illness and risk of mortality. Include clinical findings that support your diagnosis. MTDD
== END 2017-12-24 13:29 | disposition home or self-care (01) | DRG 305 ==
LOC: EC 10:01 → 6SEL 11:46
PROVIDERS: ADMIT Family Medicine; ATTEND Family Medicine
DX: I16.1 Hypertensive emergency (principal); I48.91 Unspecified atrial fibrillation; I47.1 Supraventricular tachycardia; I25.10 Atherosclerotic heart disease of native coronary artery without angina pectoris; I25.2 Old myocardial infarction; E78.5 Hyperlipidemia, unspecified; M19.91 Primary osteoarthritis, unspecified site; I10 Essential (primary) hypertension; Z86.718 Personal history of other venous thrombosis and embolism; Z86.711 Personal history of pulmonary embolism; Z95.0 Presence of cardiac pacemaker; Z79.01 Long term (current) use of anticoagulants; Z79.899 Other long term (current) drug therapy; Z86.73 Personal history of transient ischemic attack (TIA), and cerebral infarction without residual deficits; Z95.5 Presence of coronary angioplasty implant and graft; Z86.59 Personal history of other mental and behavioral disorders; Z88.5 Allergy status to narcotic agent; Z88.0 Allergy status to penicillin; Z91.041 Radiographic dye allergy status
CPT/HCPCS: 36415; 70450; 71046; 80053; 82550; 82553; 83735; 83880; 84484; 85025; 85610; 85730; 93005; 96374; 96375; 96376; 99285

== ENCOUNTER 2017-12-28 09:25 | Inpatient (IN) | payer MEDICARE, OTHER ==
--- NOTE | 2017-12-28 09:52 | ED ---
General Adult HPI - General Chief complaint: Recheck/Abnormal Lab/Rx Stated complaint: hypotensive Time Seen by Provider: 12/28/17 09:35 Source: patient, RN notes reviewed, old records reviewed Mode of arrival: wheelchair Limitations: no limitations - History of Present Illness Initial comments: 67-year-old male presents for evaluation of lightheadedness, shortness of breath , and lower extremity swelling. Patient was recently admitted to the hospital with elevated blood pressure, his medications were adjusted. His been taking multiple antihypertensive medications over the past several days. He did skip his hydralazine 100 mg this morning. He has been keeping track of his blood pressure and is down trending pressure, over the past several days blood pressures been in the 80s. He has been lightheaded. He's had worsening dyspnea. He also reports some lower burning chest pain which she attributes to acid reflux. He does have history of coronary artery disease, atrial fibrillation status post pacemaker and heart failure. Denies cough, denies fever or chills, denies vomiting or diarrhea. - Related Data Home Medications Medication Instructions Recorded Confirmed Allopurinol [Zyloprim] 300 mg PO DAILY 12/21/17 12/28/17 Apixaban [Eliquis] 5 mg PO BID 12/21/17 12/28/17 Doxazosin Mesylate 8 mg PO BID 12/21/17 12/28/17 Lisinopril [Zestril] 20 mg PO BID 12/21/17 12/28/17 Omeprazole 40 mg PO DAILY 12/21/17 12/28/17 Simvastatin [Zocor] 20 mg PO HS 12/21/17 12/28/17 Sotalol [Betapace] 80 mg PO BID 12/21/17 12/28/17 Previous Rx's Medication Instructions Recorded NIFEdipine XL [Procardia XL] 90 mg PO DAILY #30 tab.er.24 12/24/17 Nadolol [Corgard] 40 mg PO BID #60 tab 12/24/17 hydrALAZINE HCL [Apresoline] 100 mg PO TID #90 tab 12/24/17 Allergies Allergy/AdvReac Type Severity Reaction Status Date / Time amoxicillin Allergy Unknown Verified 12/28/17 10:09 ampicillin Allergy Unknown Verified 12/28/17 10:09 codeine Allergy Unknown Verified 12/28/17 10:09 Iodinated Contrast- Oral and Allergy Unknown Verified 12/28/17 10:09 IV Dye iodine Allergy Unknown Verified 12/28/17 10:09 levofloxacin [From Levaquin] Allergy Unknown Verified 12/28/17 10:09 Penicillins Allergy Unknown Verified 12/28/17 10:09 Review of Systems ROS Statement: Those systems with pertinent positive or pertinent negative responses have been documented in the HPI. ROS Other: All systems not noted in ROS Statement are negative. Past Medical History Past Medical History: Atrial Fibrillation, CVA/TIA, Deep Vein Thrombosis (DVT), Hypertension, Myocardial Infarction (MA), Pulmonary Embolus (PE) Last Myocardial Infarction Date:: 2013 History of Any Multi-Drug Resistant Organisms: None Reported Past Surgical History: Cardiac Ablation, Pacemaker Past Anesthesia/Blood Transfusion Reactions: No Reported Reaction Type of Cardiac Device: Permanent Pacemaker Device Placement Date:: 2015 Past Psychological History: Depression Smoking Status: Never smoker Past Alcohol Use History: None Reported Past Drug Use History: Marijuana General Exam Limitations: no limitations General appearance: alert, in no apparent distress Head exam: Present: atraumatic, normocephalic Eye exam: Present: normal appearance, PERRL Neck exam: Present: normal inspection. Absent: tenderness, meningismus Respiratory exam: Present: rales. Absent: respiratory distress Cardiovascular Exam: Present: regular rate, normal rhythm GI/Abdominal exam: Present: soft. Absent: distended, tenderness, guarding Extremities exam: Present: normal capillary refill, pedal edema (Bilateral 1+) Neurological exam: Present: alert, oriented X3, CN II-XII intact. Absent: motor sensory deficit Psychiatric exam: Present: normal affect, normal mood Skin exam: Present: warm, dry, intact. Absent: cyanosis, diaphoretic Course Vital Signs 12/28/17 12/28/17 09:30 10:22 Temperature 96.7 F L Pulse Rate 71 70 Respiratory 18 16 Rate Blood Pressure 101/64 110/75 O2 Sat by Pulse 96 96 Oximetry EKG Findings - EKG Comments: EKG Findings:: EKG shows atrial paced rhythm, low voltage, rate of 70, RI interval 174, QRS duration 86, QTC 483, no significant change compared to EKG obtained on December 22 Medical Decision Making - Medical Decision Making 67-year-old male presenting with low blood pressure. Patient has had several blood pressure readings in the 80s at home. He is low in the emergency department. Laboratory studies are obtained, white blood cell count normal, stable hemoglobin, normal electrolytes troponin is negative, BNP is down trending from previous admission. Chest x-ray does show stable atelectasis, cardiomegaly, and concern for pulmonary hypertension. No focal pneumonia. Patient is evaluated by his primary care physician in the emergency department Dr. Joseph, advised keeping the patient, holding antihypertensives awaiting return to normal blood pressure. - Lab Data Result diagrams: 12/28/17 10:00 12/28/17 10:00 Lab Results 12/28/17 12/28/17 12/28/17 Range/Units 10:00 10:00 10:00 WBC 7.2 (3.8-10.6) k/uL RBC 4.67 (4.30-5.90) m/uL Hgb 14.9 (13.0-17.5) gm/dL Hct 43.2 (39.0-53.0) % MCV 92.4 (80.0-100.0) fL MCH 31.9 (25.0-35.0) pg MCHC 34.6 (31.0-37.0) g/dL RDW 13.3 (11.5-15.5) % Plt Count 266 (150-450) k/uL Neutrophils % 66 % Lymphocytes % 22 % Monocytes % 5 % Eosinophils % 4 % Basophils % 1 % Neutrophils # 4.7 (1.3-7.7) k/uL Lymphocytes # 1.6 (1.0-4.8) k/uL Monocytes # 0.4 (0-1.0) k/uL Eosinophils # 0.3 (0-0.7) k/uL Basophils # 0.1 (0-0.2) k/uL PT (9.0-12.0) sec INR (<1.2) APTT (22.0-30.0) sec Sodium 143 (137-145) mmol/L Potassium 4.1 (3.5-5.1) mmol/L Chloride 104 (98-107) mmol/L Carbon Dioxide 29 (22-30) mmol/L Anion Gap 10 mmol/L BUN 29 H (9-20) mg/dL Creatinine 0.89 (0.66-1.25) mg/dL Est GFR (CKD-EPI)AfAm >90 (>60 ml/min/1.73 sqM) Est GFR (CKD-EPI)NonAf 89 (>60 ml/min/1.73 sqM) Glucose 141 H (74-99) mg/dL Calcium 9.4 (8.4-10.2) mg/dL Magnesium 1.9 (1.6-2.3) mg/dL Total Bilirubin 1.0 (0.2-1.3) mg/dL AST 62 H (17-59) U/L ALT 33 (21-72) U/L Alkaline Phosphatase 73 (38-126) U/L Total Creatine Kinase 53 L (55-170) U/L CK-MB (CK-2) 0.7 (0.0-2.4) ng/mL CK-MB (CK-2) Rel Index 1.3 Troponin I <0.012 (0.000-0.034) ng/mL NT-Pro-B Natriuret Pep pg/mL Total Protein 6.7 (6.3-8.2) g/dL Albumin 3.8 (3.5-5.0) g/dL 12/28/17 12/28/17 Range/Units 10:00 10:00 WBC (3.8-10.6) k/uL RBC (4.30-5.90) m/uL Hgb (13.0-17.5) gm/dL Hct (39.0-53.0) % MCV (80.0-100.0) fL MCH (25.0-35.0) pg MCHC (31.0-37.0) g/dL RDW (11.5-15.5) % Plt Count (150-450) k/uL Neutrophils % % Lymphocytes % % Monocytes % % Eosinophils % % Basophils % % Neutrophils # (1.3-7.7) k/uL Lymphocytes # (1.0-4.8) k/uL Monocytes # (0-1.0) k/uL Eosinophils # (0-0.7) k/uL Basophils # (0-0.2) k/uL PT 12.0 (9.0-12.0) sec INR 1.3 H (<1.2) APTT 27.8 (22.0-30.0) sec Sodium (137-145) mmol/L Potassium (3.5-5.1) mmol/L Chloride (98-107) mmol/L Carbon Dioxide (22-30) mmol/L Anion Gap mmol/L BUN (9-20) mg/dL Creatinine (0.66-1.25) mg/dL Est GFR (CKD-EPI)AfAm (>60 ml/min/1.73 sqM) Est GFR (CKD-EPI)NonAf (>60 ml/min/1.73 sqM) Glucose (74-99) mg/dL Calcium (8.4-10.2) mg/dL Magnesium (1.6-2.3) mg/dL Total Bilirubin (0.2-1.3) mg/dL AST (17-59) U/L ALT (21-72) U/L Alkaline Phosphatase (38-126) U/L Total Creatine Kinase (55-170) U/L CK-MB (CK-2) (0.0-2.4) ng/mL CK-MB (CK-2) Rel Index Troponin I (0.000-0.034) ng/mL NT-Pro-B Natriuret Pep 962 pg/mL Total Protein (6.3-8.2) g/dL Albumin (3.5-5.0) g/dL Disposition Clinical Impression: Hypotension due to medication Disposition: ADMITTED IP TO THIS [facility] Condition: Stable Referrals: Yosi Joseph MD [Primary Care Provider] - 1-2 days Decision to Admit Reason: Admit from EC Decision Date: 12/28/17 Decision Time: 11:40
[2017-12-28 10:15] LABS: Basophils # (A) 0.1 k/uL (0-0.2); Basophils % (A) 1 %; Eosinophils # (A) 0.3 k/uL (0-0.7); Eosinophils % (A) 4 %; HCT 43.2 % (39.0-53.0); HGB 14.9 gm/dL (13.0-17.5); Lymphocytes # (A) 1.6 k/uL (1.0-4.8); Lymphocytes % (A) 22 %; MCH 31.9 pg (25.0-35.0); MCHC 34.6 g/dL (31.0-37.0); MCV 92.4 fL (80.0-100.0); Mean Platelet Volume 6.9; Monocytes # (A) 0.4 k/uL (0-1.0); Monocytes % (A) 5 %; Neutrophils # (A) 4.7 k/uL (1.3-7.7); Neutrophils % (A) 66 %; Platelet Count 266 k/uL (150-450); RBC 4.67 m/uL (4.30-5.90); RDW 13.3 % (11.5-15.5); WBC 7.2 k/uL (3.8-10.6)
[2017-12-28 10:24] LABS: INR 1.3 (<1.2); Partial Thromboplastin Time 27.8 sec (22.0-30.0)
[2017-12-28 10:27] LABS: ALT 33 U/L (21-72); AST 62 U/L (17-59); Albumin 3.8 g/dL (3.5-5.0); Alkaline Phosphatase 73 U/L (38-126); Anion Gap 10 mmol/L; Blood Urea Nitrogen 29 mg/dL (9-20); Calcium 9.4 mg/dL (8.4-10.2); Carbon Dioxide 29 mmol/L (22-30); Chloride 104 mmol/L (98-107); Glucose 141 mg/dL (74-99); Magnesium 1.9 mg/dL (1.6-2.3); Potassium 4.1 mmol/L (3.5-5.1); Sodium 143 mmol/L (137-145); Total Protein 6.7 g/dL (6.3-8.2)
[2017-12-28 10:40] LABS: Creatine Kinase 53 U/L (55-170)
[2017-12-28 10:53] LABS: Creatine Kinase MB 0.7 ng/mL (0.0-2.4); Troponin I <0.012 ng/mL (0.000-0.034)
--- NOTE | 2017-12-28 11:07 | XR ---
EXAMINATION TYPE: XR chest 2V DATE OF EXAM: 12/28/2017 COMPARISON: 12/21/2017 HISTORY: Difficulty breathing TECHNIQUE: Frontal and lateral views of the chest are obtained. FINDINGS: There is no focal air space opacity, pleural effusion, or pneumothorax seen. Pulmonary hyp erinflation and flattening of the diaphragm relates to underlying COPD. Left basilar subsegmental ate lectasis is similar to the prior exam. Enlargement of the pulmonary vasculature suggests underlying p ulmonary arterial hypertension. Heart is enlarged with dual lead left-sided cardiac device. Mild mult ilevel degenerative changes of the thoracic spine are noted. IMPRESSION: Similar appearing left basilar atelectasis, radiographic sequela of COPD, enlarged cardiac silhouette , and enlargement of the pulmonary arteries which suggests underlying pulmonary arterial hypertension in comparison to the prior exam.
[2017-12-28] MEDS ORDERED: NALOXONE 0.4 MG/ML 1 ML VIAL IV PRN (11:37)
[2017-12-28] MEDS: APIXABAN 5 MG TAB PO SCH (22:24)
[2017-12-29] MEDS: PANTOPRAZOLE 40 MG TABLET PO SCH (09:34)
[2017-12-29] MEDS: APIXABAN 5 MG TAB PO SCH ×2 (09:35→21:33)
[2017-12-29] MEDS: ALLOPURINOL 300 MG TAB PO SCH (09:36)
--- NOTE | 2017-12-29 14:29 | HP ---
HISTORY AND PHYSICAL CHIEF COMPLAINT: Dizziness. HISTORY OF PRESENT ILLNESS: This is another recent admission for this 67-year-old white male. He has a history of coronary artery disease, atrial fibrillation and an extremely high blood pressures. He was recently in the hospital, had elevated blood pressure which was brought under control and he was sent home on a series of medications and seemed to be doing well, then he started orthostatic dizziness and lightheadedness. He came back to the emergency room where his blood pressure was running in the 90s systolically. He denies chest pain, syncope, focal neurologic deficits, etc. REVIEW OF SYSTEMS: He has had no other symptom, but he has had no nausea, diarrhea, melena, jaundice, renal symptoms, etc. Past medical history, family history, personal and social histories are all otherwise unremarkable or unchanged. PHYSICAL EXAMINATION: Blood pressure is 91/58 with a pulse of 81, respirations of 25 and he is afebrile. GENERAL: He appeared to be in no acute distress. Skin color is normal, skin is warm, dry. Lymph nodes not enlarged. Head, ears, eyes, nose, mouth, and throat were normal and neck veins are not distended. Thyroid was not enlarged. Chest is clear. Cardiac exam demonstrates atrial fibrillation. The abdomen is soft, nontender without any visceromegaly or masses. Extremities normal except for some edema of the feet. Neurologically is intact. IMPRESSION: 1. Hypotension, iatrogenic. 2. History of hypertension. 3. Atrial fibrillation. 4. Coronary artery disease. PLAN: 1. Bed rest. 2. IV fluids. 3. Withhold antihypertensives until his blood pressure rises. MMODL / IJN: [id number] /
--- NOTE | 2017-12-29 14:51 | PN ---
PROGRESS NOTE DATE OF SERVICE: 12/29/2016. CHIEF COMPLAINT: Hypotension. HISTORY OF PRESENT ILLNESS: This gentleman is doing fairly well. He still feels a little bit dizzy. His blood pressure is still running low. PHYSICAL EXAM: Chest is clear and cardiac exam is normal. Abdomen is soft, nontender. IMPRESSION: 1. Hypotension, iatrogenic. 2. Atrial fibrillation. 3. Coronary artery disease. PLAN: No change in his program and continue to follow. Some of his medications will be reinstituted, but his blood pressure is still low at 109/79. MMODL / IJN: [id number] /
[2017-12-30] MEDS ORDERED: ACETAMINOPHEN TAB 325 MG TAB PO PRN (02:32)
[2017-12-30] MEDS: ALLOPURINOL 300 MG TAB PO SCH (08:33)
[2017-12-30] MEDS: APIXABAN 5 MG TAB PO SCH ×2 (08:33→20:15)
[2017-12-30] MEDS: PANTOPRAZOLE 40 MG TABLET PO SCH ×2 (08:35→20:16)
[2017-12-30] MEDS ORDERED: LISINOPRIL 20 MG TAB PO SCH ×2 (09:00→10:00)
[2017-12-30] MEDS: NADOLOL 20 MG TAB PO SCH ×2 (09:31→20:16)
[2017-12-30] MEDS: IBUPROFEN 800 MG TAB PO PRN (09:32)
[2017-12-30] MEDS ORDERED: LISINOPRIL 20 MG TAB PO STA (12:43)
--- NOTE | 2017-12-30 17:19 | MISC ---
MISCELLANOUS REPORT QUERY: His atrial fibrillation is paroxysmal. MMODL / IJN: [id number] /
--- NOTE | 2017-12-30 19:19 | PN ---
PROGRESS NOTE CHIEF COMPLAINT: Hypotension. HISTORY OF PRESENT ILLNESS: This gentleman is not feeling well today. He feels a little bit dizzy and headachy. His blood pressure has started to rise. PHYSICAL EXAMINATION: CHEST: Clear. Cardiac exam is normal. Abdomen is soft, nontender. IMPRESSION: 1. Hypertension. 2. Atrial fibrillation. 3. Coronary artery disease. PLAN: 1. Start to reintroduce some of his blood pressure medications. 2. Admit. MMODL / IJN: [id number] /
[2017-12-30] MEDS: hydrALAZINE HCL 10 MG TAB PO SCH (20:15)
[2017-12-31] MEDS: IBUPROFEN 800 MG TAB PO PRN ×2 (05:13→21:41)
[2017-12-31] MEDS: NADOLOL 20 MG TAB PO SCH ×2 (06:34→20:28)
[2017-12-31] MEDS: hydrALAZINE HCL 10 MG TAB PO SCH (06:34)
[2017-12-31] MEDS: APIXABAN 5 MG TAB PO SCH ×2 (08:37→20:28)
[2017-12-31] MEDS: ALLOPURINOL 300 MG TAB PO SCH (08:37)
[2017-12-31] MEDS: hydrALAZINE HCL 25 MG TAB PO SCH ×3 (12:51→20:28)
--- NOTE | 2017-12-31 18:26 | PN ---
PROGRESS NOTE DATE OF SERVICE: 12/31/2017 CHIEF COMPLAINT: Hypertension. HISTORY OF PRESENT ILLNESS: This gentleman is feeling a little bit better. His blood pressure is still somewhat elevated, however. He has had no chest pain. He occasionally feels palpitations. PHYSICAL EXAMINATION: His color is good. Chest is clear. Cardiac exam is unchanged. The abdomen is soft, nontender. IMPRESSION: 1. Hypotension. 2. History of hypertension. 3. Atrial fibrillation. PLAN: Increase Apresoline from 10 mg t.i.d. to 25 q.i.d. and continue to follow blood pressures closely. MMODL / IJN: [id number] /
[2018-01-01] MEDS: hydrALAZINE HCL 25 MG TAB PO SCH ×2 (06:45→14:35)
[2018-01-01] MEDS: NADOLOL 20 MG TAB PO SCH ×2 (06:46→19:47)
[2018-01-01] MEDS: APIXABAN 5 MG TAB PO SCH ×2 (08:17→19:48)
[2018-01-01] MEDS: PANTOPRAZOLE 40 MG TABLET PO SCH (08:17)
[2018-01-01] MEDS: ALLOPURINOL 300 MG TAB PO SCH (08:17)
[2018-01-01 10:14] LABS: Appearance,Urine Clear (Clear); Bilirubin,Urine Negative (Negative); Blood,Urine Negative (Negative); Color,Urine Yellow; Glucose,Urine (UA) Negative (Negative); Ketones,Urine Negative (Negative); Leukocyte Esterase,Urine Negative (Negative); Nitrite,Urine Negative (Negative); Protein,Urine Negative (Negative); Specific Gravity,Urine 1.016 (1.001-1.035); Urobilinogen,Urine <2.0 mg/dL (<2.0)
[2018-01-01 14:19] LABS: Basophils # (A) 0.1 k/uL (0-0.2); Basophils % (A) 1 %; Eosinophils # (A) 0.3 k/uL (0-0.7); Eosinophils % (A) 4 %; HCT 46.2 % (39.0-53.0); HGB 14.7 gm/dL (13.0-17.5); Lymphocytes # (A) 1.5 k/uL (1.0-4.8); Lymphocytes % (A) 21 %; MCH 30.4 pg (25.0-35.0); MCHC 31.9 g/dL (31.0-37.0); MCV 95.2 fL (80.0-100.0); Mean Platelet Volume 7.3; Monocytes # (A) 0.4 k/uL (0-1.0); Monocytes % (A) 5 %; Neutrophils # (A) 4.8 k/uL (1.3-7.7); Neutrophils % (A) 68 %; Platelet Count 259 k/uL (150-450); RBC 4.85 m/uL (4.30-5.90)
[2018-01-01 14:30] LABS: ALT 41 U/L (21-72); AST 81 U/L (17-59); Albumin 3.7 g/dL (3.5-5.0); Alkaline Phosphatase 81 U/L (38-126); Anion Gap 8 mmol/L; Blood Urea Nitrogen 24 mg/dL (9-20); Calcium 9.4 mg/dL (8.4-10.2); Carbon Dioxide 33 mmol/L (22-30); Chloride 101 mmol/L (98-107); Glucose 92 mg/dL (74-99); Potassium 3.9 mmol/L (3.5-5.1); Sodium 142 mmol/L (137-145); Total Bilirubin 0.6 mg/dL (0.2-1.3); Total Protein 6.7 g/dL (6.3-8.2)
[2018-01-01] MEDS: hydrALAZINE HCL 50 MG TAB PO SCH ×2 (15:54→19:48)
--- NOTE | 2018-01-01 18:48 | PN ---
PROGRESS NOTE CHIEF COMPLAINT: Unstable blood pressure. HISTORY OF PRESENT ILLNESS: This gentleman's blood pressure is still running fairly high on the diastolic side. Whenever they are up at all, he gets a headache and dizziness. He has had no chest pain. He has had no other problems. He does complain of some frequent urination with some burning. PHYSICAL EXAM: Chest is clear. Cardiac exam is normal. Abdomen is soft, nontender. Blood pressure 156/112. IMPRESSION: 1. Uncontrolled hypertension. 2. Arrhythmia. 3. Coronary artery disease. 4. Question urinary tract infection. PLAN: 1. UA and C and S. 2. Add Cozaar and the increase hydralazine once again to 50 mg t.i.d. MMODL / IJN: [id number] /
[2018-01-01] MEDS: IBUPROFEN 800 MG TAB PO PRN (20:40)
[2018-01-01 23:50] VITALS: RESP 18
[2018-01-01] MEDS ORDERED: MORPHINE SULFATE 4 MG/ML SYRINGE IVP ONE (23:50)
[2018-01-01] MEDS ORDERED: RX INFO: IV CONTRAST WAS GIVEN 1 EACH MISC MISCELLANE PRN (23:51)
--- NOTE | 2018-01-01 23:53 | CT ---
EXAMINATION TYPE: CT brain wo con DATE OF EXAM: 01/01/2018 COMPARISON: 12/21/2017 HISTORY: Patient complains of headache. CT DLP: 1062.2 mGycm Automated exposure control for dose reduction was used. FINDINGS: Ventricles have fairly normal size. There is no mass effect nor midline shift. There is no sign of in tracranial hemorrhage. There is mucosal thickening in the ethmoid and frontal sinuses. Calvarium is i ntact. IMPRESSION: THERE IS SINUSITIS. NEGATIVE CT SCAN OF THE BRAIN. NO CHANGE.
[2018-01-02] MEDS: ENALAPRILAT 1.25 MG/ML 1 ML VIAL IVP PRN ×2 (00:09→05:50)
[2018-01-02 03:30] VITALS: PULSE 70
[2018-01-02] MEDS: ALLOPURINOL 300 MG TAB PO SCH (07:30)
[2018-01-02] MEDS: APIXABAN 5 MG TAB PO SCH (07:30)
[2018-01-02] MEDS: hydrALAZINE HCL 50 MG TAB PO SCH (07:30)
[2018-01-02] MEDS: PANTOPRAZOLE 40 MG TABLET PO SCH (07:30)
[2018-01-02] MEDS ORDERED: NIFEdipine XL 90 MG TAB.ER.24 PO SCH (09:00)
[2018-01-02] MEDS ORDERED: SOTALOL 80 MG TAB PO SCH (09:00)
[2018-01-02] MEDS ORDERED: LOSARTAN 50 MG TAB PO SCH (09:00)
[2018-01-02] MEDS: NADOLOL 20 MG TAB PO SCH (09:09)
--- NOTE | 2018-01-02 11:20 | P.CRDCN ---
History of Present Illness Consult date: 01/02/18 History of present illness: Mr. Kumar is a pleasant 67-year-old male past medical history significant for paroxysmal atrial fibrillation/flutter s/p multiple ablations x3 and cardioversion, history of chronic DVT' and PE with ochoa filter in place, hypertension, prior SD, sick sinus syndrome with pacemaker implantation, dyslipidemia and marijuana use. He follows with Dr. Aquino in the office. We have been asked to see him for uncontrolled hypertension. He moved to this area from [place], [place] around July of last year and has been establishing his medical care in town. His blood pressures have been fluctuating lately and there have been many changes made to his medications and dosages. Per the patient he would like Dr. Aquino to manage his blood pressure medications only. He was recently admitted earlier this month with similar concerns. Upon discharge at that time his blood pressures were very well controlled. His discharge medications included lisinopril 20 mg BID, Corgard 40 mg BID, Procardia XL 90 mg daily, sotalol 80 mg BID, Eliquis 5 mg BID and lipitor 10 mg daily. He states he had been taking these medications and saw his PCP in follow- up and his blood pressure was high at his office so he added hydralazine TID. He started taking this and then started noticing some dizziness at home. He was checking his blood pressures and keeping a log. Starting with 12/24 his blood pressures were as low as 80 systolic at times. When he arrived in ED he was 101/ 64 and most of his antihypertensives were held. Slowly over the course of the last few days his pressures are elevating. Medications have slowly been added on that are new to him. Blood pressure this morning 188/118. EKG on arrival is atrial paced with poor R-wave progression. Chest xray shows left basilar atelectasis, enlarged cardiac silhouette and enlargement of pulmonary arteries suggesting underlying pulmonary hyprtension. Laboratory data this morning reveals hemoglobin 14.7, platelets 259, INR 1.3, potassium 3.9, creatinine 0.98, cardiac enzyme on admission 311 was negative, magnesium 1.9. Most recent stress test was a Lexiscan 2017 was negative for reversible cardiac ischemia. Most recent echocardiogram 2017 reveals preserved LV systolic function with EF 64%, severe concentric hypertrophy, severely dilated LA, mildly dilated RA, mild AR, mild MR and RVSP 51 mmHg. Review of Systems At the time of my exam: CONSTITUTIONAL: Denies fever. Denies chills. EYES: Denies blurred vision. Denies vision changes. Denies eye pain. EARS, NOSE, MOUTH & THROAT: Denies headache. Denies sore throat. Denies ear pain. CARDIOVASCULAR: Denies chest pain. Denies shortness of breath. Denies orthopnea. Denies PND. Denies palpitations. RESPIRATORY: Denies cough. GASTROINTESTINAL: Denies abdominal pain. Denies diarrhea. Denies constipation. Denies nausea. Denies vomiting. MUSCULOSKELETAL: Denies myalgias. INTEGUMENTARY: Denies pruitis. Denies rash. NEUROLOGIC: Denies numbness. Denies tingling. Denies weakness. PSYCHIATRIC: Denies anxiety. Denies depression. ENDOCRINE: Denies fatigue. Denies weight change. Denies polydipsia. Denies polyurina. GENITOURINARY: Denies burning, hematuria or urgency with micturation. HEMATOLOGIC: Denies history of anemia. Denies bleeding. Past Medical History Past Medical History: Atrial Fibrillation, CVA/TIA, Deep Vein Thrombosis (DVT), Hypertension, Myocardial Infarction (SD), Pulmonary Embolus (PE) Last Myocardial Infarction Date:: 2013 History of Any Multi-Drug Resistant Organisms: None Reported Past Surgical History: Cardiac Ablation, Pacemaker Past Anesthesia/Blood Transfusion Reactions: No Reported Reaction Type of Cardiac Device: Permanent Pacemaker Device Placement Date:: 2015 Past Psychological History: Depression Smoking Status: Former smoker Past Alcohol Use History: None Reported Past Drug Use History: Marijuana Medications and Allergies Home Medications Medication Instructions Recorded Confirmed Type Allopurinol [Zyloprim] 300 mg PO DAILY 12/21/17 12/28/17 History Apixaban [Eliquis] 5 mg PO BID 12/21/17 12/28/17 History Doxazosin Mesylate 8 mg PO BID 12/21/17 12/28/17 History Lisinopril [Zestril] 20 mg PO BID 12/21/17 12/28/17 History Omeprazole 40 mg PO DAILY 12/21/17 12/28/17 History Simvastatin [Zocor] 20 mg PO HS 12/21/17 12/28/17 History Sotalol [Betapace] 80 mg PO BID 12/21/17 12/28/17 History NIFEdipine XL [Procardia XL] 90 mg PO DAILY #30 tab.er.24 12/24/17 12/28/17 Rx Nadolol [Corgard] 40 mg PO BID #60 tab 12/24/17 12/28/17 Rx hydrALAZINE HCL [Apresoline] 100 mg PO TID #90 tab 12/24/17 12/28/17 Rx Ibuprofen [Motrin] 800 mg PO TID PRN 12/30/17 12/30/17 History Allergies Allergy/AdvReac Type Severity Reaction Status Date / Time amoxicillin Allergy Unknown Verified 12/28/17 10:09 ampicillin Allergy Unknown Verified 12/28/17 10:09 codeine Allergy Unknown Verified 12/28/17 10:09 Iodinated Contrast- Oral and Allergy Unknown Verified 12/28/17 10:09 IV Dye iodine Allergy Unknown Verified 12/28/17 10:09 levofloxacin [From Levaquin] Allergy Unknown Verified 12/28/17 10:09 Penicillins Allergy Unknown Verified 12/28/17 10:09 Physical Exam Vitals: Vital Signs Temp Pulse Resp BP BP Pulse Ox 01/02/18 07:53 97.9 F 70 18 188/127 182/117 97 01/02/18 03:56 18 01/02/18 03:29 98.2 F 70 18 167/109 96 01/02/18 00:00 18 01/01/18 23:49 98.1 F 71 18 173/111 95 01/01/18 20:00 16 01/01/18 19:33 97.6 F 71 16 180/118 100 01/01/18 15:30 97.6 F 70 16 163/106 96 01/01/18 11:33 98.5 F 65 16 168/101 96 Intake and Output 01/01/18 01/02/18 01/02/18 22:59 06:59 14:59 Intake Total 236 Balance 236 Intake: Oral 236 Other: Voiding Method Toilet Toilet Urinal Urinal # Voids 1 1 Blood pressure 188/127 heart rate 70 afebrile maintaining oxygen saturations on room air GENERAL: This is a 67-year-old male in no apparent distress at the time of my examination. HEENT: Head is atraumatic, normocephalic. Pupils are equal, round. Sclerae anicteric. Conjunctivae are clear. Mucous membranes of the mouth are moist. Neck is supple. There is no jugular venous distention. No carotid bruit is heard. LUNGS: Faint expiratory wheeze. No rales or rhonchi. No chest wall tenderness is noted on palpation or with deep breathing. HEART: Regular rate and rhythm without murmurs, rubs or gallops. S1 and S2 heard. ABDOMEN: Soft, nontender. Bowel sounds are heard. No organomegaly noted. EXTREMITIES: No evidence of peripheral edema and no calf tenderness noted. VASCULAR: Radial and dorsalis pedis pulses palpated, no evidence of clubbing. NEUROLOGIC: Patient is awake, alert and oriented x3. Results 01/01/18 13:30 01/01/18 13:30 Cardiac Enzymes 01/01/18 Range/Units 13:30 AST 81 H (17-59) U/L CBC 01/01/18 Range/Units 13:30 WBC 7.0 (3.8-10.6) k/uL RBC 4.85 (4.30-5.90) m/uL Hgb 14.7 (13.0-17.5) gm/dL Hct 46.2 (39.0-53.0) % Plt Count 259 (150-450) k/uL Comprehensive Metabolic Panel 01/01/18 Range/Units 13:30 Sodium 142 (137-145) mmol/L Potassium 3.9 (3.5-5.1) mmol/L Chloride 101 (98-107) mmol/L Carbon Dioxide 33 H (22-30) mmol/L BUN 24 H (9-20) mg/dL Creatinine 0.98 (0.66-1.25) mg/dL Glucose 92 (74-99) mg/dL Calcium 9.4 (8.4-10.2) mg/dL AST 81 H (17-59) U/L ALT 41 (21-72) U/L Alkaline Phosphatase 81 (38-126) U/L Total Protein 6.7 (6.3-8.2) g/dL Albumin 3.7 (3.5-5.0) g/dL Current Medications Generic Name Dose Route Start Last Admin Trade Name Freq PRN Reason Stop Dose Admin Acetaminophen 650 mg 12/30/17 02:32 12/30/17 02:53 Tylenol Tab PO 650 mg Q4HR PRN Administration Fever and/ or Pain Allopurinol 300 mg 12/29/17 09:00 01/02/18 07:30 Zyloprim PO 300 mg DAILY KAVITA Administration Apixaban 5 mg 12/28/17 21:00 01/02/18 07:30 Eliquis PO 5 mg BID KAVITA Administration Ibuprofen 800 mg 12/30/17 08:54 01/01/18 20:40 Motrin PO 800 mg TID PRN Administration Pain Losartan Potassium 100 mg 01/02/18 09:00 01/02/18 07:30 Cozaar PO 100 mg DAILY KAVITA Administration Miscellaneous Information 1 each 01/01/18 23:51 Rx Info: Iv Contrast Was Given MISCELLANE 01/03/18 23:53 DAILY PRN Per Protocol Nadolol 40 mg 12/30/17 09:00 01/01/18 19:47 Corgard PO 40 mg BID KAVITA Administration Naloxone HCl 0.2 mg 12/28/17 11:37 Narcan IV Q2M PRN Opioid Reversal Nifedipine 90 mg 01/02/18 09:00 Procardia Xl PO DAILY KAVITA Pantoprazole Sodium 40 mg 12/29/17 07:30 01/02/18 07:30 Protonix PO 40 mg [id number] KAVITA Administration Sotalol HCl 80 mg 01/02/18 09:00 Betapace PO BID [facility] Intake and Output 01/01/18 01/02/18 01/02/18 22:59 06:59 14:59 Intake Total 236 Balance 236 Intake: Oral 236 Other: Voiding Method Toilet Toilet Urinal Urinal # Voids 1 1 01/01/18 13:30 01/01/18 13:30 Assessment and Plan Assessment: ASSESSMENT 1. Accelerated hypertension 2. History of paroxysmal atrial fibrillation on intermediate project manager anticoagulation with Eliquis, currently maintaining sinus mechanism. 3 failed ablations and multiple failed cardioversions. 3. History of sick sinus syndrome s/p permanent pacemaker implantation. 4. History of prior SD 5. Dyslipidemia 6. History of prior DVT and PE with ochoa filter in place 7. Chronic marijuana use PLAN Discontinue use of IV anti-hypertensives and hydralazine. Place him back on his previous regimen of medications that are used for combination of rate control and hypertension to include procardia 90 mg daily, sotalol 80 mg BID. Continue to monitor blood pressure closely. Repeat blood pressure after am meds given. Further recommendations to follow. Thank you kindly for this consultation. Nurse Practitioner note has been reviewed, I agree with a documented findings and plan of care. Patient was seen and examined.
[2018-01-02 11:48] VITALS: BP 151/95; TEMP 97.7
--- NOTE | 2018-01-03 13:44 | DS ---
DISCHARGE SUMMARY DATE OF SERVICE: 01/02/2018 CHIEF COMPLAINT: Hypotension. HISTORY OF PRESENT ILLNESS AND PHYSICAL EXAM: The details of this man's history and physical can be found in the initial workup. LABORATORY STUDIES: While he was in the hospital he had laboratory studies details which can be found in the laboratory section of the chart. COURSE IN HOSPITAL: After admission, he was placed on bedrest, started on intravenous fluids and antihypertensives were withheld. His blood pressure started to rise and he was slowly placed back on some of these medications. He had quite a bit of difficulty with blood pressure rising quite high again with associated dizziness and headache. Finally, his pressures started to respond and he wanted to be discharged on the . He was sent home and seen in several days. FINAL DIAGNOSES: 1. Malignant hypertension. 2. Atrial fibrillation. 3. Coronary artery disease. OPERATIONS: None. CONSULTATIONS: Cardiology. He is improved. MMYOVANNYL / KIRTN: [id number] /
== END 2018-01-02 15:10 | disposition home or self-care (01) | DRG 316 ==
LOC: EC 09:25 → 3OBS 11:37 → OBSVTOIN 12-30 08:55 → 3OBS 12-30 18:44
PROVIDERS: ADMIT Family Medicine; ATTEND Family Medicine
DX: I95.89 Other hypotension (principal); I48.0 Paroxysmal atrial fibrillation; E78.5 Hyperlipidemia, unspecified; F12.90 Cannabis use, unspecified, uncomplicated; I10 Essential (primary) hypertension; I25.10 Atherosclerotic heart disease of native coronary artery without angina pectoris; I25.2 Old myocardial infarction; Z79.01 Long term (current) use of anticoagulants; Z79.899 Other long term (current) drug therapy; Z86.711 Personal history of pulmonary embolism; Z86.718 Personal history of other venous thrombosis and embolism; Z86.73 Personal history of transient ischemic attack (TIA), and cerebral infarction without residual deficits; Z87.891 Personal history of nicotine dependence; Z95.0 Presence of cardiac pacemaker
CPT/HCPCS: 36415; 70450; 71046; 80053; 81003; 82550; 82553; 83735; 83880; 84484; 85025; 85610; 85730; 87086; 93005; 99285

== ENCOUNTER → 2018-03-11 | Outpatient (CLI) | payer MEDICARE, OTHER ==
--- NOTE | 2018-03-11 13:43 | XR ---
EXAMINATION TYPE: XR chest 2V DATE OF EXAM: 03/11/2018 COMPARISON: 12/28/2017 HISTORY: Shortness of breath TECHNIQUE: Frontal and lateral views of the chest are obtained. FINDINGS: Scattered senescent parenchymal changes noted. Hyperinflation compatible with COPD. Patchy density right medial lung base may reflect developing infiltrate. Correlate clinically progres s studies are recommended. Dual-lead pacer is in place. Heart size is stable. Mediastinal structures are stable and grossly unremarkable. No evidence for hilar prominence. Degenerative changes dorsal spine. IMPRESSION: 1. Patchy density right medial lung base may reflect developing infiltrate. Correlate clinically prog ress studies are recommended.
== END | disposition home or self-care (01) ==
LOC: RADXRMAIN 13:17
PROVIDERS: ATTEND Internal Medicine Geriatric Medicine
DX: J98.4 Other disorders of lung (principal); J44.9 Chronic obstructive pulmonary disease, unspecified
CPT/HCPCS: 71046